=== PATIENT | female | born 1985 | race Caucasian/White ===

== ENCOUNTER 2020-07-02 23:33 | Emergency (ER) | payer OTHER ==
[~2020-07-02] VITALS: Ht 172.7 cm; Wt 68.2 kg
[2020-07-03] MEDS ORDERED: TRAM-48 PO (00:29)
[2020-07-03] MEDS ORDERED: CYCL10TA2 PO (00:29)
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
[2020-07-03 01:00] VITALS: BP 142/74
[2020-07-03] MEDS ORDERED: CYCLOBENZAPRINE 10 MG TABLET. PO ONE (01:00)
== END 2020-07-03 01:17 | disposition home or self-care (01) ==
LOC: ER 23:33
DX: M54.6 Pain in thoracic spine (principal); M54.5 Low back pain; M54.2 Cervicalgia; F17.200 Nicotine dependence, unspecified, uncomplicated; G89.11 Acute pain due to trauma; V43.52XA Car driver injured in collision with other type car in traffic accident, initial encounter; Y93.89 Activity, other specified; Y92.488 Other paved roadways as the place of occurrence of the external cause; Y99.8 Other external cause status
CPT/HCPCS: 81025; 99283

== ENCOUNTER 2020-07-06 17:38 | Emergency (ER) | payer OTHER ==
[~2020-07-06] VITALS: Ht 172.7 cm; Wt 70.0 kg
[~2020-07-06 17:38] MED LIST: CYCL10TA2 PO; TRAM-48 PO
[2020-07-06 18:40] VITALS: BP 137/83
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
[2020-07-06] MEDS ORDERED: METH4TAB2 PO (20:57)
== END 2020-07-06 21:12 | disposition home or self-care (01) ==
LOC: ER 20:30
DX: G89.11 Acute pain due to trauma (principal); M25.511 Pain in right shoulder; M54.41 Lumbago with sciatica, right side; R51.9 Headache, unspecified; Z90.89 Acquired absence of other organs; Z87.891 Personal history of nicotine dependence; Z98.890 Other specified postprocedural states; V98.8XXA Other specified transport accidents, initial encounter; Y93.89 Activity, other specified; Y92.413 State road as the place of occurrence of the external cause; Y99.8 Other external cause status
CPT/HCPCS: 72050; 72110; 73030; 99284